=== PATIENT | female | born 1955 | race Caucasian/White ===

== ENCOUNTER 2022-08-20 09:00 | Inpatient (IN) | payer OTHER ==
[~2022-08-20] VITALS: Ht 167.6 cm; Wt 59.0 kg
[2022-08-20] MEDS ORDERED: ATACAND16 MG PO (10:19)
[2022-08-20] MEDS ORDERED: PROTONIX40 MG PO (10:20)
[2022-08-20] MEDS ORDERED: EVISTA60 MG PO (10:20)
[2022-08-20] MEDS ORDERED: PEPCID40 MG PO (10:21)
[2022-08-20] MEDS ORDERED: CRESTOR5 MG PO (10:21)
[2022-08-20] MEDS ORDERED: FOSAMAX70 MG PO (10:22)
[2022-08-20] MEDS ORDERED: D3 + K2 DOTS 11 EACH PO (10:22)
[2022-08-24] MEDS ORDERED: DICYCLOMINE HCL20 MG (08:00)
[2022-08-24] MEDS ORDERED: MAXIMUM D3325 MCG (08:00)
[2022-08-24] MEDS ORDERED: OMEPRAZOLE40 MG (08:01)
== END 2022-08-28 11:12 | disposition home or self-care (01) | DRG 331 ==
LOC: O/R 08-24 05:35 → SURH 08-24 05:35
PROVIDERS: ADMIT Colon & Rectal Surgery; ATTEND Colon & Rectal Surgery
PROC: 0DBP4ZZ Excision of Rectum, Percutaneous Endoscopic Approach (ICD-10-PCS; 2022-08-24)
PROC: 0DJD8ZZ Inspection of Lower Intestinal Tract, Via Natural or Artificial Opening Endoscopic (ICD-10-PCS; 2022-08-24)
PROC: 4A1BXSH Monitoring of Gastrointestinal Vascular Perfusion using Indocyanine Green Dye, External Approach (ICD-10-PCS; 2022-08-24)
PROC: 0DTN4ZZ Resection of Sigmoid Colon, Percutaneous Endoscopic Approach (ICD-10-PCS; principal; 2022-08-24 07:00)
DX: K57.20 Diverticulitis of large intestine with perforation and abscess without bleeding (principal); R10.32 Left lower quadrant pain; E83.39 Other disorders of phosphorus metabolism; E83.42 Hypomagnesemia; I10 Essential (primary) hypertension; E78.5 Hyperlipidemia, unspecified

== ENCOUNTER 2022-10-03 11:38 | Emergency (ER) | payer OTHER ==
[~2022-10-03] VITALS: Ht 167.6 cm; Wt 71.7 kg
[~2022-10-03 11:38] MED LIST: ATACAND16 MG PO; CRESTOR5 MG PO; D3 + K2 DOTS 11 EACH PO; DICYCLOMINE HCL20 MG; EVISTA60 MG PO; FOSAMAX70 MG PO; MAXIMUM D3325 MCG; OMEPRAZOLE40 MG; PEPCID40 MG PO; PROTONIX40 MG PO
[2022-10-03] MEDS ORDERED: INTESTINEX680 M1 PO (18:00)
[2022-10-03] MEDS ORDERED: PEPCID AC20 MG PO (18:00)
[2022-10-03] MEDS ORDERED: AMOX-CLAV 875-1 EACH PO (18:00)
== END 2022-10-03 18:10 | disposition home or self-care (01) ==
LOC: ER 11:38
DX: R10.9 Unspecified abdominal pain (principal); Z88.2 Allergy status to sulfonamides; Z91.013 Allergy to seafood; Z91.041 Radiographic dye allergy status